=== PATIENT | female | born 1990 | race African-American/Black ===

== ENCOUNTER 2016-08-27 13:26 | Emergency (ER) | payer BC ==
[2016-08-27] MEDS ORDERED: LORATADINE 10 MG TABLET PO ONE (14:40)
[2016-08-27] MEDS ORDERED: PSEUDOEPHEDRINE HCL 30 MG TABLET PO ONE (14:40)
--- NOTE | 2016-08-27 14:49 | ER Document Report ---
HPI - HPI Patient complains to provider of: sore throat, and nasal congestion Onset: Other - 2 days Onset/Duration: Gradual Pain Level: 1 Associated Symptoms: Allergy/hay fever, Nonproductive cough, Rhinnorhea, Sore throat. denies: Chills, Productive cough, Fever, Headache Exacerbated by: Denies Relieved by: Denies Recently seen / treated by doctor: Yes - Was started on antibiotics for an ear infection 4 weeks ago - DERM Skin Color: Normal Past Medical History - Social History Smoking Status: Never Smoker Family History: CVA, DM, Hypertension Patient has suicidal ideation: No Patient has homicidal ideation: No Renal/ Medical History: Denies: Hx Peritoneal Dialysis Surgical Hx: Negative Vertical Provider Document - CONSTITUTIONAL Agree With Documented VS: Yes Exam Limitations: No Limitations General Appearance: WD/WN, No Apparent Distress - INFECTION CONTROL TRAVEL OUTSIDE OF THE [place] IN LAST 30 DAYS: No - HEENT HEENT: Atraumatic, Normal ENT Exam, Normocephalic, PERRLA Notes: Uvula midline. Airway patent. No evidence of tonsillar enlargement, peritonsillar abscess, retropharyngeal abscess. - NECK Neck: Normal Inspection. negative: Lymphadenopathy-Left, Lymphadenopathy-Right - RESPIRATORY Respiratory: Breath Sounds Normal, No Respiratory Distress, Chest Non-Tender. negative: Rales, Rhonchi, Wheezing O2 Sat by Pulse Oximetry: 99 - CARDIOVASCULAR Cardiovascular: Regular Rate, Regular Rhythm, No Murmur Pulses: Normal: Radial - MUSCULOSKELETAL/EXTREMETIES Musculoskeletal/Extremeties: MAEW, FROM, Non-Tender, No Edema. negative: Eccymosis - NEURO Level of Consciousness: Awake, Alert, Appropriate Motor/Sensory: No Motor Deficit, No Sensory Deficit - DERM Integumentary: Warm, Dry, No Rash Course - Re-evaluation Re-evalutation: 08/27/16 21:06 Patient is a 25-year-old female who is hemodynamic stable, no acute distress afebrile. History and physical exam consistent with hayfever. Patient educated on medications to purchase [id number]-[id number] such as antihistamines and decongestants to help with her symptoms. Patient is to follow-up with her primary care provider. - Vital Signs Vital signs: Temp Pulse Resp BP Pulse Ox 98.4 F 85 14 141/95 H 99 08/27/16 13:32 08/27/16 13:32 08/27/16 13:32 08/27/16 13:32 08/27/16 13:32 Discharge - Discharge Clinical Impression: Rhinorrhea Condition: Good Disposition: HOME, SELF-CARE Instructions: Hay Fever ([facility]) Additional Instructions: You can take [id number] Benadryl, Claritin, pseudoephedrine and TheraFlu as needed for your nasal congestion. Please be sure to drink plenty of fluids by mouth to help keep you hydrated You can take Motrin xfbu-owa-zoggghi as needed for pain. Forms: Elevated Blood Pressure Referrals: AUGUSTINE ZUNIGA MD [ACTIVE STAFF] - Follow up as needed
[2016-08-27 14:53] VITALS: BP 135/89
== END 2016-08-27 14:50 | disposition home or self-care (01) ==
LOC: ER 13:26
DX: J02.9 Acute pharyngitis, unspecified (principal); R09.81 Nasal congestion; R05 Cough; J34.89 Other specified disorders of nose and nasal sinuses
CPT/HCPCS: 99282

== ENCOUNTER 2016-10-25 13:28 | Emergency (ER) | payer BC, OTHER ==
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
[2016-10-25 15:21] VITALS: BP 135/90
== END 2016-10-25 15:20 | disposition home or self-care (01) ==
LOC: ER 13:28
DX: S16.1XXA Strain of muscle, fascia and tendon at neck level, initial encounter (principal); V49.40XA Driver injured in collision with unspecified motor vehicles in traffic accident, initial encounter; M54.5 Low back pain; R51 Headache; M54.2 Cervicalgia
CPT/HCPCS: 99283

== ENCOUNTER 2016-10-27 08:58 | Emergency (ER) | payer OTHER, BC ==
[2016-10-27] MEDS ORDERED: OXYCODONE-ACETAMINOPHEN 5-325 MG TABLET PO ONE (09:34)
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
[2016-10-27 11:11] VITALS: BP 134/87
== END 2016-10-27 11:11 | disposition home or self-care (01) ==
LOC: ER 08:58
DX: M54.6 Pain in thoracic spine (principal); R03.0 Elevated blood-pressure reading, without diagnosis of hypertension; V89.2XXA Person injured in unspecified motor-vehicle accident, traffic, initial encounter
CPT/HCPCS: 72070; 99283